=== PATIENT | female | born 1980 | race Caucasian/White ===

== ENCOUNTER 2021-11-23 11:04 | Emergency (ER) | payer BC, SELFPAY | END 2021-11-23 13:49 | disposition home or self-care (01) | LOC: CSHERS 11:04 | DX: J20.9 Acute bronchitis, unspecified (principal); D64.9 Anemia, unspecified; Z20.822 Contact with and (suspected) exposure to COVID-19 | CPT/HCPCS: 87804; U0003; U0005 ==

== ENCOUNTER 2021-11-29 10:08 | Emergency (ER) | payer SELFPAY | END 2021-11-29 12:11 | disposition home or self-care (01) | LOC: CSHERS 10:08 | DX: J40 Bronchitis, not specified as acute or chronic (principal) | CPT/HCPCS: 71045 ==

== ENCOUNTER 2022-02-22 07:32 | Emergency (ER) | payer SELFPAY ==
[2022-02-22 08:14] LABS: Bilirubin Neg (Negative); Blood, Urine 150 (Negative); Clarity Clear (Clear); Glucose, Urine (Dipstick) Normal (Negative); Ketone, Urine Negative (Negative); Leukocyte Negative (Negative); Nitrite Negative (Negative); Protein, Urine (Dipstick) Negative (Neg-Trace); Urobilinogen Normal mg/dL (Less than 2)
[2022-02-22] MEDS ORDERED: Lidocaine/Transparent Dressing 1 EACH KIT ONE (08:14)
[2022-02-22 08:19] LABS: #Eosinphils 0.2 10x3/uL (0.0-0.5); #Monocytes 0.9 10x3/uL (0.0-1.1); %Basophils 0.2 % (0.0-2.0); %Eosinophils 1.6 % (0.0-6.0); %Lymphocytes 16.4 % (18.0-47.0); %Monocytes 8.1 % (0.0-10.0); %Neutrophils 73.4 % (40.0-75.0); Hemoglobin 10.3 g/dL (12.0-15.5); Mean Corpuscular HGB CONC 33.2 g/dL (32.0-36.0); Mean Corpuscular Hemoglobin 26.4 pg (27.0-33.0); Mean Corpuscular Volume 79.5 fl (81.6-98.3); Mean Platelet Volume 9.1 fl (7.4-10.4); Platelet Count 521 10x3/uL (150-450); RBC Distribution Width 13.3 % (11.5-14.5); White Blood Cell (WBC) Count 10.9 10x3/uL (3.5-10.5)
[2022-02-22 08:27] LABS: Bacteria/HPF Rare-Few HPF (None Seen); RBC/HPF 0-3 HPF (0-3); Squamous Epithelial 0-3 HPF (0-3); WBC/HPF 0-3 HPF (0-3)
[2022-02-22 08:29] LABS: BHCG - Serum Negative (NEGATIVE); Pregs Control Background? CLEAR/WHITE (CLR/WHITE); Pregs Control Bar Appear? YES (CONTROL BAR)
[2022-02-22 08:37] LABS: ALT (SGPT) 15 U/L (8-55); AST (SGOT) 13 U/L (5-34); Albumin 4.1 g/dL (3.5-5.0); Alkaline Phosphatase 65 U/L (40-110); Anion Gap 12 mmol/L (10-20); BUN (Urea Nitrogen) 5 mg/dL (7.0-18.7); Bilirubin, Total 0.3 mg/dL (0.2-1.2); Calc. Creatinine Clearance 0 mL/min (70-130); Calcium 9.4 mg/dL (7.8-10.44); Carbon Dioxide 22 mmol/L (22-29); Chloride 107 mmol/L (98-107); Estimated GFR 111; Globulin 3.6 g/dL (2.4-3.5); Glucose 85 mg/dL (70-105); Magnesium 2.2 mg/dL (1.6-2.6); Potassium 3.7 mmol/L (3.5-5.1); Protein, Total 7.7 g/dL (6.0-8.3); Sodium 137 mmol/L (136-145)
[2022-02-22] MEDS ORDERED: Morphine 4 MG/ML VIAL ONE ×2 (08:42→09:45)
[2022-02-22] MEDS ORDERED: Ondansetron PF 4 MG/2 ML Vial ONE ×2 (08:43→09:45)
[2022-02-22] MEDS ORDERED: HYDROcodone/Acetaminophen 10/325 mg Tablet ONE (12:21)
[2022-02-22] MEDS ORDERED: Iopamidol 300 61% 100 ML VIAL FS ONE (16:09)
== END 2022-02-22 13:52 | disposition home or self-care (01) ==
LOC: CSHERS 07:32
DX: R19.00 Intra-abdominal and pelvic swelling, mass and lump, unspecified site (principal); R91.1 Solitary pulmonary nodule
CPT/HCPCS: 71260; 74176; 74177; 80053; 81003; 81015; 83735; 84703; 85025; 96374; 96375; 96376; J2270; J2405; Q9967

== ENCOUNTER 2022-07-04 14:21 | Emergency (ER) | payer OTHER ==
[2022-07-04] MEDS ORDERED: Iopamidol 370 76% 100 ML VIAL ONE (14:25)
[2022-07-04 14:55] LABS: Hemoglobin 9.7 g/dL (12.0-15.5); Mean Corpuscular HGB CONC 29.3 g/dL (32.0-36.0); Mean Corpuscular Hemoglobin 19.6 pg (27.0-33.0); Mean Corpuscular Volume 66.7 fl (81.6-98.3); Mean Platelet Volume 9.4 fl (7.4-10.4); Platelet Count 430 10x3/uL (150-450); RBC Distribution Width 19.8 % (11.5-14.5); Red Blood Cell (RBC) Count 4.96 10x6/uL (3.90-5.03); White Blood Cell (WBC) Count 9.7 10x3/uL (3.5-10.5)
[2022-07-04 14:56] LABS: MDiff Complete? YES; Manual Diff?? YES
[2022-07-04 15:05] LABS: ALT (SGPT) 1765 U/L (8-55); AST (SGOT) 383 U/L (5-34); Albumin 3.6 g/dL (3.5-5.0); Alkaline Phosphatase 195 U/L (40-110); Anion Gap 16 mmol/L (10-20); BUN (Urea Nitrogen) 16 mg/dL (7.0-18.7); Bilirubin, Total 0.8 mg/dL (0.2-1.2); Calc. Creatinine Clearance 0 mL/min (70-130); Calcium 8.4 mg/dL (7.8-10.44); Carbon Dioxide 17 mmol/L (22-29); Chloride 106 mmol/L (98-107); Estimated GFR 100; Globulin 2.9 g/dL (2.4-3.5); Glucose 206 mg/dL (70-105); Lipase 70 U/L (8-78); Potassium 4.8 mmol/L (3.5-5.1); Protein, Total 6.5 g/dL (6.0-8.3); Sodium 134 mmol/L (136-145)
[2022-07-04 15:13] LABS: Band 4 % (5-11); Lymphocytes 6 % (21-51); Monocytes 1 % (0-10); Neutrophil 86 % (42-75); Reactive Lymphocytes 3 % (0-10)
[2022-07-04 15:14] LABS: Anisocytosis SLIGHT = 6-15 cells (100X) (0-5/hpf); Hypochromia SLIGHT = 6-15 cells (100X) (0-5/hpf); Macrocytosis SLIGHT = 6-15 cells (100X) (0-5/hpf); Microcytosis SLIGHT = 6-15 cells (100X) (0-5/hpf); Platelet Morphology Comment Appears Adequate
[2022-07-04 15:15] LABS: Elliptocytes SLIGHT = 2-5 cells (100X) (0-1/hpf); Polychromasia SLIGHT = 2-3 cells (100X) (0-2/hpf); Target Cells SLIGHT = 2-5 cells (100X) (0-1/hpf)
[2022-07-04] MEDS ORDERED: Ondansetron PF 4 MG/2 ML Vial ONE ×2 (16:49→18:22)
[2022-07-04] MEDS ORDERED: Morphine 4 MG/ML VIAL ONE ×2 (16:49→18:21)
[2022-07-04 18:04] LABS: Lactic Acid 1.4 mmol/L (0.5-2.2)
== END 2022-07-04 18:51 | disposition home or self-care (01) ==
LOC: CSHERS 14:21
DX: R07.89 Other chest pain (principal); C79.2 Secondary malignant neoplasm of skin; R06.00 Dyspnea, unspecified
CPT/HCPCS: 36415; 71045; 71275; 80053; 83605; 83690; 84484; 85025; 93005; 96374; 96375; 96376; J2270; J2405; Q9967

== ENCOUNTER 2022-07-29 22:34 | Emergency (ER) | payer OTHER ==
[2022-07-29 23:47] LABS: #Monocytes 0.9 10x3/uL (0.0-1.1); #Neutrophils 6.9 10x3/uL (1.5-8.4); %Basophils 0.1 % (0.0-2.0); %Eosinophils 0.2 % (0.0-6.0); %Neutrophils 73.8 % (40.0-75.0); Hemoglobin 10.1 g/dL (12.0-15.5); Mean Corpuscular HGB CONC 29.4 g/dL (32.0-36.0); Mean Corpuscular Hemoglobin 20.2 pg (27.0-33.0); Mean Corpuscular Volume 68.5 fl (81.6-98.3); Mean Platelet Volume 8.5 fl (7.4-10.4); Platelet Count 409 10x3/uL (150-450); RBC Distribution Width 20.6 % (11.5-14.5); Red Blood Cell (RBC) Count 5.01 10x6/uL (3.90-5.03); White Blood Cell (WBC) Count 9.4 10x3/uL (3.5-10.5)
[2022-07-29 23:52] LABS: ALT (SGPT) 123 U/L (8-55); AST (SGOT) 47 U/L (5-34); Albumin 3.6 g/dL (3.5-5.0); Alkaline Phosphatase 77 U/L (40-110); Anion Gap 14 mmol/L (10-20); BUN (Urea Nitrogen) 10 mg/dL (7.0-18.7); Bilirubin, Total 0.4 mg/dL (0.2-1.2); Calc. Creatinine Clearance 0 mL/min (70-130); Calcium 8.6 mg/dL (7.8-10.44); Carbon Dioxide 21 mmol/L (22-29); Chloride 106 mmol/L (98-107); Estimated GFR 108; Globulin 2.7 g/dL (2.4-3.5); Glucose 140 mg/dL (70-105); Potassium 3.3 mmol/L (3.5-5.1); Protein, Total 6.3 g/dL (6.0-8.3); Sodium 138 mmol/L (136-145)
[2022-07-30 00:13] LABS: Platelet Morphology Comment Appears Increased
[2022-07-30 00:14] LABS: Hypochromia SLIGHT = 6-15 cells (100X) (0-5/hpf); Microcytosis SLIGHT = 6-15 cells (100X) (0-5/hpf)
[2022-07-30 00:16] LABS: Anisocytosis SLIGHT = 6-15 cells (100X) (0-5/hpf); Elliptocytes SLIGHT = 2-5 cells (100X) (0-1/hpf); Ovalocytes SLIGHT = 2-5 cells (100X) (0-1/hpf)
[2022-07-30] MEDS ORDERED: Morphine 4 MG/ML VIAL ONE (01:06)
== END 2022-07-30 01:20 | disposition home or self-care (01) ==
LOC: CSHERS 22:34
DX: M94.0 Chondrocostal junction syndrome [Tietze] (principal)
CPT/HCPCS: 71045; 80053; 83690; 84484; 85025; 85379; 93005; J2270

== ENCOUNTER 2022-09-03 09:25 | Outpatient (CLI) | payer OTHER ==
[2022-09-03] MEDS ORDERED: Iopamidol 300 61% 100 ML VIAL FS ONE (16:53)
== END 2022-09-03 09:26 | disposition home or self-care (01) ==
LOC: CSHCT 09:25
PROVIDERS: ATTEND Internal Medicine
DX: C43.9 Malignant melanoma of skin, unspecified (principal); C78.02 Secondary malignant neoplasm of left lung; C78.7 Secondary malignant neoplasm of liver and intrahepatic bile duct; M89.8X0 Other specified disorders of bone, multiple sites; R22.2 Localized swelling, mass and lump, trunk
CPT/HCPCS: 71260; 74177; Q9967

== ENCOUNTER 2023-01-14 12:44 | Outpatient (CLI) | payer OTHER | END 2023-01-14 12:45 | disposition home or self-care (01) | LOC: CSHULT 12:44 | PROVIDERS: ATTEND Internal Medicine | DX: C43.59 Malignant melanoma of other part of trunk (principal); Z79.899 Other long term (current) drug therapy; I34.0 Nonrheumatic mitral (valve) insufficiency | CPT/HCPCS: 93306 ==

== ENCOUNTER 2023-01-16 13:17 | Outpatient (CLI) | payer OTHER | END 2023-01-16 13:18 | disposition home or self-care (01) | LOC: CSHMRI 13:17 | PROVIDERS: ATTEND Radiology Radiation Oncology | DX: C79.31 Secondary malignant neoplasm of brain (principal); J32.2 Chronic ethmoidal sinusitis; J32.0 Chronic maxillary sinusitis | CPT/HCPCS: 70553 ==

== ENCOUNTER 2023-05-01 12:57 | Outpatient (CLI) | payer OTHER | END 2023-05-01 12:58 | disposition home or self-care (01) | LOC: CSHULT 12:57 | PROVIDERS: ATTEND Internal Medicine | DX: Z01.818 Encounter for other preprocedural examination (principal); C43.59 Malignant melanoma of other part of trunk | CPT/HCPCS: 93306 ==

== ENCOUNTER 2023-08-21 12:32 | Emergency (ER) | payer OTHER ==
[2023-08-21] MEDS ORDERED: Bacitracin 1 PK ONE (13:21)
== END 2023-08-21 13:30 | disposition home or self-care (01) ==
LOC: CSHERS 12:32
DX: S61.207A Unspecified open wound of left little finger without damage to nail, initial encounter (principal); X58.XXXA Exposure to other specified factors, initial encounter
CPT/HCPCS: 99283

== ENCOUNTER 2023-08-28 16:19 | Emergency (ER) | payer OTHER | END 2023-08-28 17:40 | disposition home or self-care (01) | LOC: CSHERS 16:19 | DX: L98.9 Disorder of the skin and subcutaneous tissue, unspecified (principal); L98.0 Pyogenic granuloma | CPT/HCPCS: 99283 ==